=== PATIENT | female | born 1990 | race Caucasian/White ===

== ENCOUNTER 2016-06-11 20:14 | Emergency (ER) | payer OTHER ==
[2016-06-11 21:01] LABS: BILIRUBIN NEGATIVE (NEGATIVE); BLOOD TRACE-LYSED Ery/uL (NEGATIVE); CLARITY CLEAR (CLEAR); COLOR YELLOW (YELLOW); GLUCOSE (U) NORMAL (NORMAL); KETONE (U) NEGATIVE (NEGATIVE); LEUKOCYTES NEGATIVE Leu/uL (NEGATIVE); NITRITE NEGATIVE (NEGATIVE); PROTEIN NEGATIVE (NEGATIVE); SPECIFIC GRAVITY >=1.030 (1.001-1.030); UROBILINOGEN 0.2 mg/dL (0.2-1.0)
[2016-06-11 21:08] LABS: BACTERIA TRACE; URINARY WBC RARE
[2016-06-11 21:09] LABS: MUCOUS MODERATE
[2016-06-11 21:29] LABS: BASOPHIL 0.2 % (0-2); EOSINOPHIL 0.9 % (0-5); HCT 40.2 % (37.0-47.0); LYMPHOCYTE 23.3 % (15-48); MCH 29.9 pg (25.0-31.0); MCHC 34.8 g/dL (32.0-36.0); MCV 85.9 fL (78.0-100.0); MONOCYTE 8.2 % (0-12); NEUTROPHIL 67.4 % (41-80); PLT 365 K/uL (150-400); RBC 4.68 M/uL (4.20-5.40); RDW 12.5 % (11.5-14.0); WBC 10.4 K/uL (4.0-10.5)
[2016-06-11 21:50] LABS: ALBUMIN 4.2 g/dL (3.5-5.0); BILIRUBIN - TOTAL 0.2 mg/dL (0.1-1.0); CREATININE 0.7 mg/dL (0.5-1.0); GLOBULIN (CALCULATION) 2.8 g/dL (2.2-4.2); POTASSIUM 3.9 mmol/L (3.5-5.1)
== END 2016-06-11 23:57 | disposition home or self-care (01) ==
LOC: FER 20:14
PROVIDERS: Emergency Medicine; Nurse Practitioner Family
DX: R30.0 Dysuria (principal); R10.9 Unspecified abdominal pain; R82.90 Unspecified abnormal findings in urine
CPT/HCPCS: 36415; 80053; 81001; 85025; 87210

== ENCOUNTER 2021-10-15 08:03 | Emergency (ER) | payer OTHER ==
[2021-10-15 09:51] LABS: BASOPHIL 0.5 % (0-2); BILIRUBIN NEGATIVE (NEGATIVE); BLOOD NEGATIVE Ery/uL (NEGATIVE); CLARITY CLEAR (CLEAR); COLOR YELLOW (YELLOW); EOSINOPHIL 3.7 % (0-5); GLUCOSE (U) NORMAL (NORMAL); HCT 43.7 % (37.0-47.0); HGB 14.3 g/dl (12.5-16.0); LEUKOCYTES NEGATIVE Leu/uL (NEGATIVE); LYMPHOCYTE 30.5 % (15-48); MCH 28.8 pg (25.0-31.0); MCHC 32.7 g/dL (32.0-36.0); MCV 88.1 fL (78.0-100.0); MONOCYTE 7.3 % (0-12); MPV 9.7 fL (6.0-9.5); NEUTROPHIL 57.8 % (41-80); NITRITE NEGATIVE (NEGATIVE); NRBC 0; PLT 347 K/uL (150-400); PROTEIN NEGATIVE (NEGATIVE); RBC 4.96 M/uL (4.20-5.40); RDW 12.9 % (11.5-14.0); SPECIFIC GRAVITY 1.025 (1.001-1.030); UROBILINOGEN 0.2 mg/dL (0.2-1.0); WBC 6.1 K/uL (4.0-10.5); pH 5.5 (5.0-9.0)
[2021-10-15 10:36] LABS: ALBUMIN 3.8 g/dL (3.4-5.0); BILIRUBIN - TOTAL 0.4 mg/dL (0.2-1.0); BUN/CREAT RATIO (CALC) 23.2 RATIO; CREATININE 0.56 mg/dL (0.51-0.95); GLOBULIN (CALCULATION) 3.4 g/dL; POTASSIUM 3.7 mmol/L (3.5-5.1); TOTAL PROTEIN 7.2 g/dL (6.4-8.2)
[2021-10-15] MEDS ORDERED: FIORICET1 EACH PO (10:49)
== END 2021-10-15 11:00 | disposition home or self-care (01) ==
LOC: FER 08:03
PROVIDERS: Emergency Medicine
DX: G44.209 Tension-type headache, unspecified, not intractable (principal); Z28.310 Unvaccinated for COVID-19
CPT/HCPCS: 36415; 80053; 81003; 85025; 99283